=== PATIENT | male | born 1935 | race Caucasian/White ===

== ENCOUNTER 2017-04-04 12:40 | Inpatient (IN) | payer OTHER, BC ==
[~2017-04-04] VITALS: Ht 172.7 cm; Wt 54.5 kg
[2017-04-04] VITALS (9 sets, daily range): BP systolic 118–148; BP diastolic 52–67
[~2017-04-04 12:40] MED LIST: ADVIL PM1 TABLET PO; ANORO ELLIPTA1 EACH IH; ASPIR 8181 M1 PO; Advil PM PO; BENTYL20 MG PO; CELEXA20 MG PO; CIPRO500 MG PO; COMPAZINE10 MG PO; COMPAZINE5 MG PO; DAILY VITE1 EAC1 PO; FLAGYL500 MG PO; FUROSEMIDE80 MG PO; KADIAN10 MG PO; KADIAN30 MG PO; LASIX80 MG PO; LEVOFLOXACIN500 MG PO; LIDODERM 5% P1 PATCH TD; MARINOL2.5 M1 PO; METRONIDAZOLE500 MG PO; MIDODRINE HCL10 MG PO; MORPHINE SULFAT30 M1 PO; MUCINEX D ER T1 EACH PO; MUCINEX600 MG PO; ONDANSETRON HCL4 MG PO; OXYCODONE HCL15 MG PO; OXYCODONE-APAP1 EACH PO; OXYCONTIN10 MG PO; PANTOPRAZOLE SO40 MG PO; PERCOCET 10/1 TABLET PO; PERCOCET 5/31 TABLET PO; PROAIR HFA8.5 GM IH; PROTONIX40 MG PO; RESTORIL15 MG PO; REVLIMID10 MG PO; STOOL SOFTENER100 MG PO; TUDORZA PRESS400 MCG IH; TYLENOL PM1 CAPLET PO; Tudorza Pressair IH; VALACYCLOVIR500 MG PO; VALTREX1000 MG PO; VALTREX50 MG/ML PO; VANCOMYCIN125 MG/2.5 PO; VENTOLIN HFA18 GM IH; VITAMIN D250000 UNIT PO; VITAMIN D32000 UNI1 PO; Vancocin Oral Solution PO; Vicodin,Norco 5/325 PO; ZOLPIDEM TARTRAT5 MG PO; [UNRECOGNIZED DRUG - REMARK] PO
[2017-04-04 14:12] LABS: HEMATOCRIT 17.3 % (38.0-50.0); HEMOGLOBIN 5.7 G/DL (12.5-16.6); MCH 32.6 PG (29.0-34.0); MCHC 32.9 G/DL (30.0-36.0); MCV 98.9 FL (86-99); RBC DIS.WIDTH-CV 13.6 % (11.8-14.6); RBC DIS.WIDTH-SD 48.9 % (39-53); RED BLOOD COUNT 1.75 M/uL (4.00-5.50); WHITE BLOOD COUNT 1.1 K/uL (4.1-10.2)
[2017-04-04 14:14] LABS: ALBUMIN 2.9 g/dL (3.2-4.8)
[2017-04-04 14:15] LABS: CHLORIDE 101 mEq/L (99-109); POTASSIUM 3.3 mEq/L (3.7-5.4); SODIUM 140 mEq/L (136-147)
[2017-04-04 14:17] LABS: GLUCOSE 80 mg/dL (70-99); TOTAL PROTEIN 4.9 g/dL (6.4-8.3)
[2017-04-04 14:19] LABS: TOTAL BILIRUBIN 1.8 mg/dL (0.0-1.0)
[2017-04-04 14:20] LABS: ALKALINE PHOSPHATASE 46 IU/L (3-129)
[2017-04-04 14:21] LABS: CREATININE 0.8 mg/dL (0.6-1.3); GFR ESTIMATE (CALCULATED) > 59 mL/min/ (58.99-99999)
[2017-04-04 14:22] LABS: AST (GOT) < 5 IU/L (2-34); UREA NITROGEN (BUN) 20 mg/dL (9-23)
[2017-04-04 14:23] LABS: ALT (GPT) < 3 IU/L (3-49)
[2017-04-04 14:28] LABS: TROP-I INTERPRETATION NEGATIVE; TROPONIN-I < 0.01 ng/mL (0.0-0.30)
[2017-04-04 15:22] LABS: ABS NEUTROPHIL COUNT 0.3; ANISOCYTOSIS 1+; BAND NEUTROPHILS 3.6 % (0-8.0); BASOPHILS 2.7 %; EOSINOPHIL ABS CT 0; EOSINOPHILS 2.7 % (0-5.0); IMM.PLATELET FRACTION 4.2 (1-7); LYMPHOCYTES 38.8 % (15.0-45.0); METAMYELOCYTES 2.7 %; MONOCYTES 25.2 % (0-9.0); MYELOCYTES 0.9 %; PLAT.SUFFICIENCY VERY DECREASED; SEG.NEUTROPHILS 23.4 % (46.0-76.0); TOXIC GRANULATION 2+
[2017-04-04 15:25] LABS: PLATELET COUNT 23 K/uL (156-360)
[2017-04-04] MEDS ORDERED: SENNA8.6 MG PO (15:48)
[2017-04-04] MEDS ORDERED: FLOMAX0.4 MG PO (15:49)
[2017-04-04] MEDS ORDERED: ADVIL PM1 TABLET PO (15:49)
[2017-04-04] MEDS ORDERED: PROAIR HFA8.5 GM IH (15:50)
[2017-04-04] MEDS ORDERED: ZOFRAN4 MG PO (15:50)
[2017-04-04] MEDS ORDERED: POMALYST3 MG PO (17:03)
[2017-04-04 17:12] LABS: APPEARANCE SL.HAZY ((CLEAR)); BILIRUBIN NEGATIVE; BLOOD SMALL; COLOR YELLOW ((YELLOW)); GLUCOSE (STRIP) NEGATIVE; KETONES 5; LEUKOCYTES NEGATIVE; NITRITE NEGATIVE; PROTEIN (STRIP) 30; SPECIFIC GRAVITY 1.016 (1.000-1.030); UROBILINOGEN 0.2 MG/DL (0.2-1.0)
[2017-04-04 17:20] LABS: BACTERIA RARE /HPF; EPITHELIAL CELLS RARE /HPF; MUCUS 3+ /LPF; WHITE BLOOD CELLS 0-5 /HPF (0-5)
[2017-04-05 03:34] VITALS: BP 127/60
[2017-04-05 05:38] LABS: CHLORIDE 102 MEQ/L (99-109); CREATININE 0.9 MG/DL (0.6-1.3); GFR ESTIMATE (CALCULATED) > 59 mL/min/ (58.99-99999); GLUCOSE 89 mg/dL (70-99); POTASSIUM 3.5 MEQ/L (3.7-5.4); SODIUM 142 MEQ/L (136-147); UREA NITROGEN (BUN) 23 mg/dL (9-23)
[2017-04-05 05:39] LABS: ABS NEUTROPHIL COUNT 0.6; ANISOCYTOSIS 1+; ATYPICAL LYMPHOCYTE 1.7 %; BAND NEUTROPHILS 0.9 % (0-8.0); BASOPHILS 3.5 %; EOSINOPHIL ABS CT 0; HEMOGLOBIN 7.8 G/DL (12.5-16.6); IMM.PLATELET FRACTION 2.2 (1-7); LYMPHOCYTES 28.9 % (15.0-45.0); MCH 31.7 PG (29.0-34.0); MCHC 33.9 G/DL (30.0-36.0); MCV 93.5 FL (86-99); MICROCYTOSIS 1+; MONOCYTES 24.6 % (0-9.0); MYELOCYTES 1.8 %; OVALOCYTES 1+; PLAT.SUFFICIENCY VERY DECREASED; PLATELET COUNT 23 K/uL (156-360); POIKILOCYTOSIS 1+; RBC DIS.WIDTH-CV 15.9 % (11.8-14.6); RBC DIS.WIDTH-SD 54.1 % (39-53); RED BLOOD COUNT 2.46 M/uL (4.00-5.50); SEG.NEUTROPHILS 38.6 % (46.0-76.0); WHITE BLOOD COUNT 1.5 K/uL (4.1-10.2)
[2017-04-05 07:16] VITALS: BP 130/60
[2017-04-05 11:15] VITALS: BP 122/58
[2017-04-05 12:52] LABS: HEMATOCRIT 22.5 % (38.0-50.0); HEMOGLOBIN 7.7 G/DL (12.5-16.6); MCH 32.2 PG (29.0-34.0); MCHC 34.2 G/DL (30.0-36.0); MCV 94.1 FL (86-99); RBC DIS.WIDTH-CV 15.7 % (11.8-14.6); RBC DIS.WIDTH-SD 54.4 % (39-53); RED BLOOD COUNT 2.39 M/uL (4.00-5.50)
[2017-04-05 13:08] LABS: WHITE BLOOD COUNT 1.6 K/uL (4.1-10.2)
[2017-04-05 13:23] LABS: ABS NEUTROPHIL COUNT 0.5; ANISOCYTOSIS 1+; ATYPICAL LYMPHOCYTE 0.9 %; BAND NEUTROPHILS 7.2 % (0-8.0); BASOPHILS 0.9 %; EOSINOPHIL ABS CT 0.1; EOSINOPHILS 3.6 % (0-5.0); HYPOCHROMASIA 1+; IMM.PLATELET FRACTION 2.4 (1-7); LYMPHOCYTES 35.2 % (15.0-45.0); METAMYELOCYTES 1.8 %; MICROCYTOSIS 1+; MONOCYTES 23.4 % (0-9.0); MYELOCYTES 2.7 %; PLAT.SUFFICIENCY VERY DECREASED; POLYCHROMASIA 1+; SEG.NEUTROPHILS 24.3 % (46.0-76.0); SMUDGE CELLS 7.2
[2017-04-05 13:24] LABS: PLATELET COUNT 26 K/uL (156-360)
[2017-04-05 15:08] VITALS: BP 139/63
[2017-04-05 19:43] VITALS: BP 124/58
[2017-04-05 22:41] VITALS: BP 141/67
[2017-04-06 04:18] VITALS: BP 143/65
[2017-04-06 07:15] VITALS: BP 127/58
[2017-04-06 11:00] VITALS: BP 131/61
[2017-04-06 16:13] VITALS: BP 131/62
[2017-04-06 19:58] VITALS: BP 134/61
[2017-04-06 23:27] LABS: CREATININE 0.8 MG/DL (0.6-1.3); GFR ESTIMATE (CALCULATED) > 59 mL/min/ (58.99-99999); VANCOMYCIN, TROUGH 12.6 MCG/ML (10-20)
[2017-04-07] VITALS (7 sets, daily range): BP systolic 126–150; BP diastolic 60–72
[2017-04-07 09:51] LABS: HEMATOCRIT 23.4 % (38.0-50.0); HEMOGLOBIN 7.7 G/DL (12.5-16.6); MCH 31.3 PG (29.0-34.0); MCHC 32.9 G/DL (30.0-36.0); MCV 95.1 FL (86-99); RBC DIS.WIDTH-CV 14.6 % (11.8-14.6); RBC DIS.WIDTH-SD 50.6 % (39-53); RED BLOOD COUNT 2.46 M/uL (4.00-5.50)
[2017-04-07 10:03] LABS: WHITE BLOOD COUNT 1.7 K/uL (4.1-10.2)
[2017-04-07 10:08] LABS: CHLORIDE 105 MEQ/L (99-109); POTASSIUM 3.5 MEQ/L (3.7-5.4); SODIUM 143 MEQ/L (136-147)
[2017-04-07 10:14] LABS: CREATININE 0.9 MG/DL (0.6-1.3); GFR ESTIMATE (CALCULATED) > 59 mL/min/ (58.99-99999); GLUCOSE 126 mg/dL (70-99); UREA NITROGEN (BUN) 25 mg/dL (9-23)
[2017-04-07 10:18] LABS: IMM.PLATELET FRACTION 2.3 (1-7); PLAT.SUFFICIENCY DECREASED
[2017-04-07 10:19] LABS: PLATELET COUNT 34 K/uL (156-360)
[2017-04-08] VITALS (8 sets, daily range): BP systolic 132–150; BP diastolic 60–70
[2017-04-08 09:19] LABS: HEMATOCRIT 20.4 % (38.0-50.0); MCH 31.5 PG (29.0-34.0); MCHC 33.3 G/DL (30.0-36.0); MCV 94.4 FL (86-99); RBC DIS.WIDTH-CV 14.3 % (11.8-14.6); RBC DIS.WIDTH-SD 49.1 % (39-53); RED BLOOD COUNT 2.16 M/uL (4.00-5.50)
[2017-04-08 09:23] LABS: HEMOGLOBIN 6.8 G/DL (12.5-16.6); WHITE BLOOD COUNT 1.9 K/uL (4.1-10.2)
[2017-04-08 09:31] LABS: CHLORIDE 105 MEQ/L (99-109); POTASSIUM 3.8 MEQ/L (3.7-5.4); SODIUM 144 MEQ/L (136-147)
[2017-04-08 09:38] LABS: CREATININE 0.8 MG/DL (0.6-1.3); GFR ESTIMATE (CALCULATED) > 59 mL/min/ (58.99-99999); UREA NITROGEN (BUN) 23 mg/dL (9-23)
[2017-04-08 09:39] LABS: GLUCOSE 90 mg/dL (70-99)
[2017-04-08 09:40] LABS: IMM.PLATELET FRACTION 2.2 (1-7); PLAT.SUFFICIENCY DECREASED; PLATELET COUNT 31 K/uL (156-360)
[2017-04-09 07:51] VITALS: BP 127/60
[2017-04-09 08:01] LABS: HEMATOCRIT 22.2 % (38.0-50.0); HEMOGLOBIN 7.6 G/DL (12.5-16.6); MCH 31.5 PG (29.0-34.0); MCHC 34.2 G/DL (30.0-36.0); MCV 92.1 FL (86-99); RBC DIS.WIDTH-CV 14.7 % (11.8-14.6); RBC DIS.WIDTH-SD 49.3 % (39-53); RED BLOOD COUNT 2.41 M/uL (4.00-5.50); WHITE BLOOD COUNT 2.2 K/uL (4.1-10.2)
[2017-04-09 08:31] LABS: PLAT.SUFFICIENCY DECREASED
[2017-04-09 08:59] LABS: CHLORIDE 105 MEQ/L (99-109); POTASSIUM 3.5 MEQ/L (3.7-5.4); SODIUM 143 MEQ/L (136-147)
[2017-04-09 09:04] LABS: CREATININE 0.7 MG/DL (0.6-1.3); GFR ESTIMATE (CALCULATED) > 59 mL/min/ (58.99-99999); GLUCOSE 84 mg/dL (70-99); UREA NITROGEN (BUN) 24 mg/dL (9-23)
[2017-04-09 13:55] LABS: PLATELET COUNT 36 K/uL (156-360)
[2017-04-09 13:57] LABS: IMM.PLATELET FRACTION 1.6 (1-7)
[2017-04-09 16:22] VITALS: BP 115/56
[2017-04-10 00:32] VITALS: BP 145/61
[2017-04-10 08:10] LABS: HEMATOCRIT 23.6 % (38.0-50.0); HEMOGLOBIN 7.6 G/DL (12.5-16.6); MCH 30.2 PG (29.0-34.0); MCHC 32.2 G/DL (30.0-36.0); MCV 93.7 FL (86-99); RBC DIS.WIDTH-CV 14.5 % (11.8-14.6); RBC DIS.WIDTH-SD 49.1 % (39-53); RED BLOOD COUNT 2.52 M/uL (4.00-5.50); WHITE BLOOD COUNT 1.7 K/uL (4.1-10.2)
[2017-04-10 08:31] LABS: ABS NEUTROPHIL COUNT 1.1; ANISOCYTOSIS 1+; ATYPICAL LYMPHOCYTE 5.2 %; EOSINOPHIL ABS CT 0; EOSINOPHILS 0.9 % (0-5.0); HYPOCHROMASIA 1+; IMM.PLATELET FRACTION 1.7 (1-7); LYMPHOCYTES 15.6 % (15.0-45.0); METAMYELOCYTES 0.9 %; MICROCYTOSIS 1+; OVALOCYTES 1+; PLAT.SUFFICIENCY DECREASED; PLATELET COUNT 39 K/uL (156-360); POIKILOCYTOSIS 1+; POLYCHROMASIA 1+; TOXIC GRANULATION 1+
[2017-04-10 08:35] VITALS: BP 133/71
[2017-04-10 08:54] LABS: MONOCYTES 11.3 % (0-9.0); SEG.NEUTROPHILS 66.1 % (46.0-76.0)
[2017-04-10 09:16] LABS: CHLORIDE 105 MEQ/L (99-109); CREATININE 0.8 MG/DL (0.6-1.3); GFR ESTIMATE (CALCULATED) > 59 mL/min/ (58.99-99999); GLUCOSE 86 mg/dL (70-99); POTASSIUM 3.5 MEQ/L (3.7-5.4); SODIUM 146 MEQ/L (136-147); UREA NITROGEN (BUN) 23 mg/dL (9-23)
[2017-04-10] MEDS ORDERED: MORPHINE CON20 MG/M1 PO (13:42)
[2017-04-10] MEDS ORDERED: ANASPAZ0.125 MG PO (13:42)
[2017-04-10] MEDS ORDERED: ATIVAN INTE2 MG/1 ML PO (13:43)
== END 2017-04-10 16:15 | disposition hospice, home (50) | DRG 177 ==
LOC: EME 12:40 → EDOF 15:36 → 5EAST 15:36 → ENRESERV 15:37 → CANRESERV 17:37 → ENRESERV 17:37 → 5EAST 21:26
PROVIDERS: Emergency Medicine; Internal Medicine; Nurse Practitioner Adult Health
PROC: 30233N1 Transfusion of Nonautologous Red Blood Cells into Peripheral Vein, Percutaneous Approach (ICD-10-PCS; principal; 2017-04-04)
DX: J69.0 Pneumonitis due to inhalation of food and vomit (principal); D61.810 Antineoplastic chemotherapy induced pancytopenia; E43 Unspecified severe protein-calorie malnutrition; J96.00 Acute respiratory failure, unspecified whether with hypoxia or hypercapnia; J44.1 Chronic obstructive pulmonary disease with (acute) exacerbation; Z68.1 Body mass index [BMI] 19.9 or less, adult; C90.00 Multiple myeloma not having achieved remission; F33.9 Major depressive disorder, recurrent, unspecified; Z51.5 Encounter for palliative care; Z66 Do not resuscitate; J98.11 Atelectasis; F05 Delirium due to known physiological condition; R13.10 Dysphagia, unspecified; F17.210 Nicotine dependence, cigarettes, uncomplicated; E87.6 Hypokalemia; G89.3 Neoplasm related pain (acute) (chronic); N40.0 Benign prostatic hyperplasia without lower urinary tract symptoms; I50.9 Heart failure, unspecified; R41.82 Altered mental status, unspecified; T45.1X5A Adverse effect of antineoplastic and immunosuppressive drugs, initial encounter; Z87.440 Personal history of urinary (tract) infections; Z92.21 Personal history of antineoplastic chemotherapy; Z99.81 Dependence on supplemental oxygen; Z80.0 Family history of malignant neoplasm of digestive organs
CPT/HCPCS: 71046; 74230; 80048; 80053; 80202; 81003; 82565; 83605; 83880; 84484; 85025; 85025 91; 85027; 86850; 86900; 86901; 86920; 87040; 87070; 87077; 87086; 87147; 87186; 87205; 87449; 92610 GN; 92611 GN; 94640; 94640 76; 94760; 94799; 97530 GP; 99202; 99281; 99285; J0692; J1956; J2270; J3370; J3480; J7030; P9016; Q0167